=== PATIENT | female | born 1960 | race African-American/Black ===

== ENCOUNTER 2019-04-01 11:53 | Observation (INO) ==
[2019-04-01] MEDS ORDERED: methylPREDNISolone SOD SUC 125 MG/2 ML VIAL IV STA (12:11)
[2019-04-01] MEDS ORDERED: ALBUTEROL 2.5 MG/3 ML NEB RESP TX SCH (12:30)
[2019-04-01 12:58] LABS: ABG Base Excess 6.6 MMOL/L (-2.5-2.5); ABG Oxygen Saturation 83.8 % (95-100); ABG PCO2 61.2 MM HG (35-48); ABG PH 7.362 (7.35-7.45); ABG PO2 50.1 MM HG (80-95); ABG TCO2 29.7 MMOL/L (23-27)
[2019-04-01 13:07] LABS: Alanine Aminotransferase 13 U/L (13-56); Alkaline Phosphatase 103 U/L (45-117); Aspartate Amino Transferase 15 U/L (0-37); Bilirubin,Total < 0.39 MG/DL (0.2-1.0); Blood Urea Nitrogen 8 MG/DL (7-18); Calcium 9.1 MG/DL (8.5-10.1); Glucose 197 MG/DL (74-106); Osmolality,Calculated 277.7 MOS/KG (273-304); Total Protein 7.1 G/DL (6.4-8.3)
[2019-04-01 13:09] LABS: Basophils # 0.1 10*3/uL (0.0-0.2); Basophils % 0.8 % (0.0-0.8); Eosinophils # 0.5 10*3/uL (0.0-0.87); Eosinophils % 4.9 % (0.00-10.9); Hematocrit 51.5 VOL% (35.7-47.0); Hemoglobin 15.5 GM/DL (12.0-16.0); Immature Granulocytes % 0.3 %; Immature Granulocytes Absolute 0.03 #; Lymphocytes # 3.2 10*3/uL (1.4-4.0); Lymphocytes % 31.4 % (21.3-54.2); Mean Corpuscular HGB Conc 30.1 GM/DL (32-36); Mean Corpuscular Volume 85.3 FL (87-102); Mean Platelet Volume 11.8 FL (9.6-12.0); Monocytes % 6.5 % (1.7-12.7); Neutrophils % 56.1 % (38.7-73.9); Platelet Count 244 T/CUMM (130-400); Red Blood Count 6.04 MC/CUMM (3.8-5.5); Red Cell Distribution Width 17.2 % (9.3-17.3); White Blood Count 10.1 T/CUMM (4-12)
[2019-04-01] MEDS ORDERED: GLUCAGON 1 MG VIAL IM PRN (15:00)
[2019-04-01] MEDS ORDERED: ONDANSETRON 4 MG/2 ML VIAL IV PRN (15:00)
[2019-04-01] MEDS ORDERED: diphenhydrAMINE CAP 25 MG CAPSULE PO PRN (15:00)
[2019-04-01] MEDS ORDERED: DEXTROSE 50% 25 GM/50 ML VIAL IV PRN (15:00)
[2019-04-01] MEDS ORDERED: ACETAMINOPHEN 325 MG TABLET PO PRN (15:00)
[2019-04-01] MEDS ORDERED: PROMETHAZINE 25 MG/1 ML VIAL IM PRN (15:00)
[2019-04-01] MEDS ORDERED: ZALEPLON 5 MG CAPSULE PO PRN (15:00)
[2019-04-01] MEDS ORDERED: NICOTINE 21 MG/24 HR PATCH TRANSDERM PRN (15:00)
[2019-04-01] MEDS: methylPREDNISolone SOD SUC 40 MG/1 ML VIAL IV SCH ×2 (16:41→20:26)
[2019-04-01] MEDS: HEPARIN 5,000 UNIT/1 ML VIAL SUBCUT SCH (16:42)
[2019-04-01] MEDS: INSULIN REGULAR 100 UNIT/ML SUBCUT SCH ×2 (16:43→20:24)
[2019-04-01] MEDS: INSULIN LISPRO 100 UNIT/ML SUBCUT SCH (16:43)
[2019-04-01] MEDS: cefTRIAXone 1,000 MG in SYRINGE 1 EACH IV SCH (16:44)
[2019-04-01] MEDS: AZITHROMYCIN 250 MG TABLET PO SCH (17:02)
[2019-04-01] MEDS ORDERED: FUROSEMIDE 40 MG/4 ML VIAL IV ONE (19:00)
[2019-04-01] MEDS ORDERED: MAGNESIUM HYDROXIDE SUSP 30 ML UDCUP PO ONE (19:00)
[2019-04-01] MEDS: ALBUTEROL/IPRATROPIUM 3 ML NEB RESP TX SCH (19:26)
[2019-04-01] MEDS ORDERED: MAGNESIUM CITRATE 300 ML BOTTLE PO ONE (19:30)
[2019-04-01] MEDS: INSULIN GLARGINE 100 UNIT/ML SUBCUT SCH (20:23)
[2019-04-01] MEDS: BUDESONIDE/FORMOTEROL 160-4.5 INHALER 6 GM INH SCH (20:25)
[2019-04-01] MEDS: GABAPENTIN 300 MG CAPSULE PO SCH (20:26)
[2019-04-01] MEDS: glyBURIDE 5 MG TABLET PO SCH (20:26)
[2019-04-01] MEDS: LISINOPRIL/HCTZ 20-12.5 MG TABLET PO SCH (20:26)
[2019-04-01] MEDS: DOCUSATE SODIUM 100 MG CAPSULE PO SCH (20:26)
[2019-04-02] MEDS: HEPARIN 5,000 UNIT/1 ML VIAL SUBCUT SCH ×4 (00:02→23:32)
[2019-04-02] MEDS: ALBUTEROL/IPRATROPIUM 3 ML NEB RESP TX SCH ×4 (01:25→19:23)
[2019-04-02] MEDS: methylPREDNISolone SOD SUC 40 MG/1 ML VIAL IV SCH ×2 (05:03→13:22)
[2019-04-02 05:20] LABS: Basophils % 0.2 % (0.0-0.8); Hematocrit 48.9 VOL% (35.7-47.0); Hemoglobin 14.4 GM/DL (12.0-16.0); Immature Granulocytes % 0.7 %; Immature Granulocytes Absolute 0.09 #; Lymphocytes # 1.4 10*3/uL (1.4-4.0); Lymphocytes % 11.3 % (21.3-54.2); Mean Corpuscular HGB Conc 29.4 GM/DL (32-36); Mean Corpuscular Volume 85.8 FL (87-102); Mean Platelet Volume 11.9 FL (9.6-12.0); Monocytes % 1.8 % (1.7-12.7); Platelet Count 282 T/CUMM (130-400); Red Cell Distribution Width 16.4 % (9.3-17.3); White Blood Count 12.1 T/CUMM (4-12)
[2019-04-02 05:33] LABS: Alanine Aminotransferase 15 U/L (13-56); Albumin 2.8 G/DL (3.4-5.0); Alkaline Phosphatase 99 U/L (45-117); Aspartate Amino Transferase 11 U/L (0-37); Bilirubin,Total < 0.39 MG/DL (0.2-1.0); Blood Urea Nitrogen 17 MG/DL (7-18); Calcium 9.5 MG/DL (8.5-10.1); Glucose 327 MG/DL (74-106); HDL Cholesterol 31 MG/DL (40-60); Osmolality,Calculated 284.1 MOS/KG (273-304); Risk Ratio 5.77; Thyroid Stimulating Hormone 0.084 uIU/ml (0.358-3.74); Total Protein 7.6 G/DL (6.4-8.3); Triglycerides 93 MG/DL (2-150); VLDL CHOLESTEROL 18.6 MG/DL
[2019-04-02 07:26] LABS: Apearance,Urine CLEAR (Clear); Bilirubin,Urine Negative (Negative); Blood, Urine Negative (Negative); Glucose,Urine (UA) >=500 mg/dL (Negative); Hyaline Casts,Urine 1 /LPF (0-3); Ketones,Urine Negative (Negative); Mucus,Urine Occasional /LPF (Occasional); Nitrite,Urine Negative (Negative); Protein,Urine Negative; RBC,Urine <1 /HPF (0-4); Squamous Epithelial Cell,Urine Occasional /HPF (0-10); Urine Color Yellow (Yellow); Urine Urobilinogen < 2.0 EU/DL (0.2-1.0)
[2019-04-02] MEDS: DOCUSATE SODIUM 100 MG CAPSULE PO SCH ×2 (08:47→22:15)
[2019-04-02] MEDS: MONTELUKAST 10 MG TABLET PO SCH (08:47)
[2019-04-02] MEDS: LISINOPRIL/HCTZ 20-12.5 MG TABLET PO SCH ×2 (08:47→21:46)
[2019-04-02] MEDS: GABAPENTIN 300 MG CAPSULE PO SCH ×2 (08:47→21:09)
[2019-04-02] MEDS: PANTOPRAZOLE 40 MG TABLET PO SCH (08:47)
[2019-04-02] MEDS: buPROPion SR 150 MG TABLET PO SCH (08:47)
[2019-04-02] MEDS: AZITHROMYCIN 250 MG TABLET PO SCH (08:47)
[2019-04-02] MEDS: BUDESONIDE/FORMOTEROL 160-4.5 INHALER 6 GM INH SCH ×2 (08:48→22:15)
[2019-04-02] MEDS: glyBURIDE 5 MG TABLET PO SCH ×2 (08:48→21:10)
[2019-04-02] MEDS: INSULIN REGULAR 100 UNIT/ML SUBCUT SCH ×4 (08:49→21:12)
[2019-04-02] MEDS: INSULIN LISPRO 100 UNIT/ML SUBCUT SCH ×2 (08:49→16:56)
[2019-04-02] MEDS ORDERED: AMMONIUM LACTATE 12% LOTION 240 ML BOTTLE TOP SCH (09:00)
[2019-04-02] MEDS: cefTRIAXone 1,000 MG in SYRINGE 1 EACH IV SCH (16:55)
[2019-04-02] MEDS: INSULIN GLARGINE 100 UNIT/ML SUBCUT SCH (21:13)
[2019-04-02] MEDS: guaiFENesin/DM ER 600-30 MG TABLET PO PRN (21:20)
[2019-04-03] MEDS: ALBUTEROL/IPRATROPIUM 3 ML NEB RESP TX SCH ×2 (00:05→06:57)
[2019-04-03] MEDS ORDERED: methylPREDNISolone SOD SUC 40 MG/1 ML VIAL IV SCH (01:00)
[2019-04-03 04:21] LABS: ABG HCO3 32.3 MMOL/L (20-26); ABG Oxygen Saturation 89.3 % (95-100); ABG PCO2 58.4 MM HG (35-48); ABG PH 7.361 (7.35-7.45); ABG PO2 62.8 MM HG (80-95); ABG TCO2 34.1 MMOL/L (23-27); Allen Test Positive
[2019-04-03] MEDS: INSULIN REGULAR 100 UNIT/ML SUBCUT SCH (08:34)
[2019-04-03] MEDS: HEPARIN 5,000 UNIT/1 ML VIAL SUBCUT SCH (08:35)
[2019-04-03] MEDS: LISINOPRIL/HCTZ 20-12.5 MG TABLET PO SCH (08:36)
[2019-04-03] MEDS: INSULIN LISPRO 100 UNIT/ML SUBCUT SCH (08:36)
[2019-04-03] MEDS: DOCUSATE SODIUM 100 MG CAPSULE PO SCH (08:37)
[2019-04-03] MEDS: MONTELUKAST 10 MG TABLET PO SCH (08:37)
[2019-04-03] MEDS: PANTOPRAZOLE 40 MG TABLET PO SCH (08:37)
[2019-04-03] MEDS: buPROPion SR 150 MG TABLET PO SCH (08:37)
[2019-04-03] MEDS: guaiFENesin/DM ER 600-30 MG TABLET PO PRN (08:37)
[2019-04-03] MEDS: glyBURIDE 5 MG TABLET PO SCH (08:37)
[2019-04-03] MEDS: AZITHROMYCIN 250 MG TABLET PO SCH (08:37)
[2019-04-03] MEDS: GABAPENTIN 300 MG CAPSULE PO SCH (08:43)
[2019-04-03] MEDS: BUDESONIDE/FORMOTEROL 160-4.5 INHALER 6 GM INH SCH (08:43)
[2019-04-03 12:14] VITALS: BP 124/65
== END 2019-04-03 13:25 | disposition home or self-care (01) ==
LOC: N.EDINP 11:53 → N.ED 11:53 → N.4E 16:05
PROVIDERS: ADMIT Family Medicine; ATTEND Family Medicine

== ENCOUNTER 2019-09-22 11:13 | Observation (INO) ==
[2019-09-22] MEDS ORDERED: DEXTROSE 50% 25 GM/50 ML VIAL IV PRN (12:30)
[2019-09-22] MEDS ORDERED: ONDANSETRON 4 MG/2 ML VIAL IV PRN (12:30)
[2019-09-22] MEDS ORDERED: traMADol 50 MG TABLET PO PRN (12:30)
[2019-09-22] MEDS ORDERED: GLUCAGON 1 MG VIAL IM PRN (12:30)
[2019-09-22] MEDS ORDERED: ACETAMINOPHEN 325 MG TABLET PO PRN (12:30)
[2019-09-22] MEDS ORDERED: ALBUTEROL/IPRATROPIUM 3 ML NEB RESP TX PRN (12:32)
[2019-09-22] MEDS ORDERED: hydrALAZINE 20 MG/1 ML VIAL IV PRN (12:32)
[2019-09-22] MEDS ORDERED: BENZONATATE 100 MG CAPSULE PO PRN (12:32)
[2019-09-22] MEDS ORDERED: cefTRIAXone 1,000 MG in SYRINGE 1 EACH IV SCH (13:00)
[2019-09-22] MEDS ORDERED: AZITHROMYCIN INJ 500 MG in SODIUM CHLORIDE 0.9% 250 ML IV SCH (13:00)
[2019-09-22 14:07] LABS: Basophils # 0.1 10*3/uL (0.0-0.2); Basophils % 0.7 % (0.0-0.8); Eosinophils # 0.5 10*3/uL (0.0-0.87); Eosinophils % 4.6 % (0.00-10.9); Hematocrit 49.6 VOL% (35.7-47.0); Hemoglobin 14.8 GM/DL (12.0-16.0); Immature Granulocytes % 0.3 %; Immature Granulocytes Absolute 0.03 #; Lymphocytes # 3.3 10*3/uL (1.4-4.0); Lymphocytes % 33.8 % (21.3-54.2); Mean Corpuscular HGB Conc 29.8 GM/DL (32-36); Mean Corpuscular Volume 87.8 FL (87-102); Mean Platelet Volume 11.4 FL (9.6-12.0); Monocytes % 4.7 % (1.7-12.7); Neutrophils % 55.9 % (38.7-73.9); Platelet Count 338 T/CUMM (130-400); Red Blood Count 5.65 MC/CUMM (3.8-5.5); Red Cell Distribution Width 14.8 % (9.3-17.3); White Blood Count 9.7 T/CUMM (4-12)
[2019-09-22 14:29] LABS: Bilirubin,Total 0.6 MG/DL (0.2-1.0); Calcium 9.3 MG/DL (8.5-10.1); Osmolality,Calculated 274.1 MOS/KG (273-304); Total Protein 7.6 G/DL (6.4-8.3)
[2019-09-22] MEDS: FUROSEMIDE 40 MG/4 ML VIAL IV SCH (14:33)
[2019-09-22] MEDS: methylPREDNISolone SOD SUC 40 MG/1 ML VIAL IV SCH (14:33)
[2019-09-22 14:47] LABS: Apearance,Urine Slightly Hazy (Clear); Bacteria,Urine Occasional /HPF (Few); Bilirubin,Urine Negative (Negative); Blood, Urine Negative (Negative); Glucose,Urine (UA) Negative (Negative); Ketones,Urine Negative (Negative); Mucus,Urine Moderate /LPF (Occasional); Nitrite,Urine Negative (Negative); Protein,Urine Negative; Squamous Epithelial Cell,Urine Occasional /HPF (0-10); Urine Color Yellow (Yellow); Urine Specific Gravity 1.023 (1.001-1.035)
[2019-09-22] MEDS: ALBUTEROL/IPRATROPIUM 3 ML NEB RESP TX SCH ×3 (15:46→23:53)
[2019-09-22] MEDS: INSULIN LISPRO 100 UNIT/ML SUBCUT SCH ×2 (17:47→22:44)
[2019-09-22] MEDS: LISINOPRIL/HCTZ 20-12.5 MG TABLET PO SCH (21:25)
[2019-09-22] MEDS: GABAPENTIN 300 MG CAPSULE PO SCH (21:26)
[2019-09-22] MEDS: DOCUSATE SODIUM 100 MG CAPSULE PO SCH (21:26)
[2019-09-22] MEDS: BUDESONIDE/FORMOTEROL 160-4.5 INHALER 6 GM INH SCH (21:28)
[2019-09-23] MEDS: methylPREDNISolone SOD SUC 40 MG/1 ML VIAL IV SCH (01:48)
[2019-09-23] MEDS: ALBUTEROL/IPRATROPIUM 3 ML NEB RESP TX SCH ×3 (03:25→11:16)
[2019-09-23 05:39] LABS: Calcium 9.3 MG/DL (8.5-10.1); Osmolality,Calculated 280.4 MOS/KG (273-304)
[2019-09-23] MEDS: GLYCOPYRROLATE FORMOTEROL INH SCH ×2 (06:43→09:09)
[2019-09-23] MEDS ORDERED: INSULIN LISPRO 100 UNIT/ML SUBCUT SCH (08:00)
[2019-09-23] MEDS ORDERED: PANTOPRAZOLE 40 MG TABLET PO SCH (09:00)
[2019-09-23] MEDS ORDERED: MONTELUKAST 10 MG TABLET PO SCH (09:00)
[2019-09-23] MEDS: INSULIN LISPRO 100 UNIT/ML SUBCUT SCH ×2 (09:08→12:31)
[2019-09-23] MEDS: GABAPENTIN 300 MG CAPSULE PO SCH (09:09)
[2019-09-23] MEDS: LISINOPRIL/HCTZ 20-12.5 MG TABLET PO SCH (09:09)
[2019-09-23] MEDS: FUROSEMIDE 40 MG/4 ML VIAL IV SCH (09:10)
[2019-09-23] MEDS: BUDESONIDE/FORMOTEROL 160-4.5 INHALER 6 GM INH SCH (10:22)
[2019-09-23] MEDS: DOCUSATE SODIUM 100 MG CAPSULE PO SCH (10:22)
[2019-09-23 12:32] VITALS: BP 145/62
== END 2019-09-23 13:15 | disposition home or self-care (01) ==
LOC: N.2W
PROVIDERS: ADMIT Family Medicine; ATTEND Family Medicine

== ENCOUNTER 2019-11-24 11:45 | Inpatient (IN) ==
[2019-11-24] MEDS ORDERED: methylPREDNISolone SOD SUC 125 MG/2 ML VIAL IV STA (12:10)
[2019-11-24] MEDS ORDERED: ALBUTEROL NEB SOLN 5 MG/ML 20 ML/BOTTLE CONT NEB SCH (12:30)
[2019-11-24 12:59] LABS: ABG Base Excess 4.6 MMOL/L (-2.5-2.5); ABG HCO3 28.4 MMOL/L (20-26); ABG Oxygen Saturation 92.7 % (95-100); ABG PCO2 52.3 MM HG (35-48); ABG PH 7.384 (7.35-7.45); ABG PO2 65.2 MM HG (80-95); ABG TCO2 26.8 MMOL/L (23-27)
[2019-11-24 13:01] LABS: Alanine Aminotransferase 15 U/L (13-56); Albumin 3.1 G/DL (3.4-5.0); Alkaline Phosphatase 110 U/L (45-117); Aspartate Amino Transferase 19 U/L (0-37); Bilirubin,Total < 0.39 MG/DL (0.2-1.0); Blood Urea Nitrogen 10 MG/DL (7-18); Calcium 9.7 MG/DL (8.5-10.1); Estimated Glom Filtration Rate 153 ML/MIN; Glucose 218 MG/DL (74-106); Osmolality,Calculated 273.2 MOS/KG (273-304); Total Protein 7.6 G/DL (6.4-8.3)
[2019-11-24 13:16] LABS: Basophils # 0.1 10*3/uL (0.0-0.2); Basophils % 0.5 % (0.0-0.8); Eosinophils # 0.5 10*3/uL (0.0-0.87); Eosinophils % 4.4 % (0.00-10.9); Hematocrit 52.8 VOL% (35.7-47.0); Hemoglobin 15.4 GM/DL (12.0-16.0); Immature Granulocytes % 0.4 %; Immature Granulocytes Absolute 0.04 #; Lymphocytes # 3.9 10*3/uL (1.4-4.0); Lymphocytes % 35.5 % (21.3-54.2); Mean Corpuscular HGB Conc 29.2 GM/DL (32-36); Mean Corpuscular Volume 87.4 FL (87-102); Monocytes % 3.6 % (1.7-12.7); Neutrophils % 55.6 % (38.7-73.9); Platelet Count 226 T/CUMM (130-400); Red Blood Count 6.04 MC/CUMM (3.8-5.5); Red Cell Distribution Width 15.4 % (9.3-17.3); White Blood Count 11.1 T/CUMM (4-12)
[2019-11-24] MEDS ORDERED: ONDANSETRON 4 MG/2 ML VIAL IV PRN (14:54)
[2019-11-24] MEDS ORDERED: SODIUM CHLORIDE 0.9% 1,000 ML IV SCH (14:54)
[2019-11-24] MEDS ORDERED: ACETAMINOPHEN 325 MG TABLET PO PRN (14:54)
[2019-11-24] MEDS ORDERED: GLUCAGON 1 MG VIAL IM PRN (15:16)
[2019-11-24] MEDS ORDERED: DEXTROSE 10% 250 ML BAG IV PRN ×2 (15:16→16:25)
[2019-11-24] MEDS ORDERED: hydrALAZINE 20 MG/1 ML VIAL IV PRN (16:23)
[2019-11-24] MEDS ORDERED: traMADol 50 MG TABLET PO PRN (16:23)
[2019-11-24] MEDS ORDERED: ALBUTEROL/IPRATROPIUM 3 ML NEB RESP TX PRN (16:23)
[2019-11-24] MEDS ORDERED: GABAPENTIN 300 MG CAPSULE PO PRN (16:25)
[2019-11-24] MEDS: INSULIN LISPRO 100 UNIT/ML SUBCUT SCH ×3 (16:50→21:56)
[2019-11-24] MEDS: cefTRIAXone 1,000 MG in SYRINGE 1 EACH IV SCH (16:58)
[2019-11-24] MEDS: ALBUTEROL 2.5 MG/3 ML NEB RESP TX SCH ×3 (17:04→23:56)
[2019-11-24] MEDS: DOCUSATE SODIUM 100 MG CAPSULE PO SCH (21:55)
[2019-11-24] MEDS: BUDESONIDE/FORMOTEROL 160-4.5 INHALER 6 GM INH SCH (21:55)
[2019-11-24] MEDS: glyBURIDE 5 MG TABLET PO SCH (21:55)
[2019-11-24] MEDS: LISINOPRIL/HCTZ 20-12.5 MG TABLET PO SCH (21:55)
[2019-11-24] MEDS: INSULIN GLARGINE 100 UNIT/ML SUBCUT SCH (21:57)
[2019-11-25] MEDS: ALBUTEROL 2.5 MG/3 ML NEB RESP TX SCH ×6 (03:44→23:49)
[2019-11-25 06:16] LABS: Calcium 9.2 MG/DL (8.5-10.1); Osmolality,Calculated 279.2 MOS/KG (273-304)
[2019-11-25] MEDS: DOCUSATE SODIUM 100 MG CAPSULE PO SCH ×2 (09:03→21:39)
[2019-11-25] MEDS: glyBURIDE 5 MG TABLET PO SCH ×2 (09:03→21:39)
[2019-11-25] MEDS: MONTELUKAST 10 MG TABLET PO SCH (09:03)
[2019-11-25] MEDS: PANTOPRAZOLE 40 MG TABLET PO SCH (09:03)
[2019-11-25] MEDS: LISINOPRIL/HCTZ 20-12.5 MG TABLET PO SCH ×2 (09:03→21:51)
[2019-11-25] MEDS: INSULIN LISPRO 100 UNIT/ML SUBCUT SCH ×7 (09:04→21:41)
[2019-11-25] MEDS: cefTRIAXone 1,000 MG in SYRINGE 1 EACH IV SCH (09:10)
[2019-11-25] MEDS: methylPREDNISolone SOD SUC 40 MG/1 ML VIAL IV SCH ×2 (09:17→21:35)
[2019-11-25] MEDS: BUDESONIDE/FORMOTEROL 160-4.5 INHALER 6 GM INH SCH ×2 (10:16→21:51)
[2019-11-25] MEDS: INSULIN GLARGINE 100 UNIT/ML SUBCUT SCH (21:41)
[2019-11-26] MEDS: ALBUTEROL 2.5 MG/3 ML NEB RESP TX SCH ×5 (04:00→19:24)
[2019-11-26] MEDS: BUDESONIDE/FORMOTEROL 160-4.5 INHALER 6 GM INH SCH ×2 (08:55→21:13)
[2019-11-26] MEDS: INSULIN LISPRO 100 UNIT/ML SUBCUT SCH ×7 (08:56→21:06)
[2019-11-26] MEDS: methylPREDNISolone SOD SUC 40 MG/1 ML VIAL IV SCH ×2 (08:57→21:01)
[2019-11-26] MEDS: LISINOPRIL/HCTZ 20-12.5 MG TABLET PO SCH ×2 (08:58→21:01)
[2019-11-26] MEDS: PANTOPRAZOLE 40 MG TABLET PO SCH (08:58)
[2019-11-26] MEDS: cefTRIAXone 1,000 MG in SYRINGE 1 EACH IV SCH (08:58)
[2019-11-26] MEDS: DOCUSATE SODIUM 100 MG CAPSULE PO SCH ×2 (08:58→21:01)
[2019-11-26] MEDS: glyBURIDE 5 MG TABLET PO SCH ×2 (08:58→21:01)
[2019-11-26] MEDS: MONTELUKAST 10 MG TABLET PO SCH (08:58)
[2019-11-26] MEDS ORDERED: POLYETHYLENE GLYCOL POWDER 17 GM PACK PO PRN (11:46)
[2019-11-26] MEDS: INSULIN GLARGINE 100 UNIT/ML SUBCUT SCH (21:07)
[2019-11-27] MEDS: ALBUTEROL 2.5 MG/3 ML NEB RESP TX SCH ×3 (00:30→06:57)
[2019-11-27 07:27] VITALS: BP 142/76
[2019-11-27] MEDS: cefTRIAXone 1,000 MG in SYRINGE 1 EACH IV SCH (09:04)
[2019-11-27] MEDS: glyBURIDE 5 MG TABLET PO SCH (09:04)
[2019-11-27] MEDS: PANTOPRAZOLE 40 MG TABLET PO SCH (09:04)
[2019-11-27] MEDS: LISINOPRIL/HCTZ 20-12.5 MG TABLET PO SCH (09:04)
[2019-11-27] MEDS: DOCUSATE SODIUM 100 MG CAPSULE PO SCH (09:04)
[2019-11-27] MEDS: MONTELUKAST 10 MG TABLET PO SCH (09:04)
[2019-11-27] MEDS: methylPREDNISolone SOD SUC 40 MG/1 ML VIAL IV SCH (09:05)
[2019-11-27] MEDS: INSULIN LISPRO 100 UNIT/ML SUBCUT SCH ×2 (09:05)
[2019-11-27] MEDS: BUDESONIDE/FORMOTEROL 160-4.5 INHALER 6 GM INH SCH (09:05)
== END 2019-11-27 09:37 | disposition home or self-care (01) | DRG 140 ==
LOC: N.ED 11:45 → N.EDINP 13:54 → N.2E 14:45
PROVIDERS: ADMIT Family Medicine; ATTEND Family Medicine

== ENCOUNTER 2020-03-30 10:09 | Inpatient (IN) ==
[2020-03-30] MEDS ORDERED: LEVOFLOXACIN 500 MG TABLET PO STA (10:52)
[2020-03-30] MEDS ORDERED: methylPREDNISolone SOD SUC 125 MG/2 ML VIAL IV STA (10:52)
[2020-03-30] MEDS ORDERED: ALBUTEROL NEB SOLN 5 MG/ML 20 ML/BOTTLE CONT NEB SCH (11:00)
[2020-03-30 11:13] LABS: PT Patient Result 11.1 SECS (9.8-11.9); Partial Thromboplastin Time 28.8 SECS (23.9-33.8)
[2020-03-30 11:27] LABS: Alanine Aminotransferase 16 U/L (13-56); Albumin 2.9 G/DL (3.4-5.0); Alkaline Phosphatase 104 U/L (45-117); Aspartate Amino Transferase 17 U/L (0-37); Basophils # 0.1 10*3/uL (0.0-0.2); Basophils % 0.7 % (0.0-0.8); Bilirubin,Total < 0.39 MG/DL (0.2-1.0); Blood Urea Nitrogen 7 MG/DL (7-18); Calcium 9.4 MG/DL (8.5-10.1); Eosinophils # 0.5 10*3/uL (0.0-0.87); Eosinophils % 5.1 % (0.00-10.9); Estimated Glom Filtration Rate 153 ML/MIN; Glucose 179 MG/DL (74-106); Hematocrit 47.6 VOL% (35.7-47.0); Immature Granulocytes % 0.3 %; Immature Granulocytes Absolute 0.03 #; Lymphocytes # 3.2 10*3/uL (1.4-4.0); Lymphocytes % 31.4 % (21.3-54.2); Mean Corpuscular HGB Conc 30.3 GM/DL (32-36); Mean Corpuscular Volume 86.4 FL (87-102); Mean Platelet Volume 11.5 FL (9.6-12.0); Monocytes % 5.5 % (1.7-12.7); Osmolality,Calculated 276.7 MOS/KG (273-304); Platelet Count 297 T/CUMM (130-400); Red Blood Count 5.51 MC/CUMM (3.8-5.5); Red Cell Distribution Width 15.1 % (9.3-17.3); Total Protein 7.4 G/DL (6.4-8.3); White Blood Count 10.2 T/CUMM (4-12)
[2020-03-30 11:30] LABS: Hemoglobin 14.4 GM/DL (12.0-16.0)
[2020-03-30 12:47] LABS: Apearance,Urine CLEAR (Clear); Bilirubin,Urine Negative (Negative); Blood, Urine Negative (Negative); Glucose,Urine (UA) Negative (Negative); Ketones,Urine Negative (Negative); Mucus,Urine Occasional /LPF (Occasional); Nitrite,Urine Negative (Negative); Protein,Urine Negative; RBC,Urine <1 /HPF (0-4); Squamous Epithelial Cell,Urine Occasional /HPF (0-10); Urine Color Yellow (Yellow); Urine Urobilinogen < 2.0 EU/DL (0.2-1.0)
[2020-03-30 13:17] LABS: Barbiturates Screen,Urine Negative (Negative); Benzodiazepines Screen,Urine Negative (Negative); Cannabinoid Screen,Urine Negative (Negative); Opiate Screen,Urine Negative (Negative); Phencyclidine Screen,Urine Negative (Negative)
[2020-03-30] MEDS ORDERED: ONDANSETRON 4 MG/2 ML VIAL IV PRN (14:56)
[2020-03-30] MEDS ORDERED: ALBUTEROL 2.5 MG/3 ML NEB RESP TX SCH (14:56)
[2020-03-30] MEDS ORDERED: SODIUM CHLORIDE 0.9% 1,000 ML IV SCH (14:56)
[2020-03-30] MEDS ORDERED: ACETAMINOPHEN 325 MG TABLET PO PRN (14:56)
[2020-03-30] MEDS ORDERED: FUROSEMIDE 40 MG/4 ML VIAL IV ONE (19:10)
[2020-03-30] MEDS ORDERED: hydrALAZINE 20 MG/1 ML VIAL IV PRN (19:14)
[2020-03-30] MEDS ORDERED: MAGNESIUM SULF RIDER 4 GM in PREMIX 1 EACH IV PRN (20:00)
[2020-03-30] MEDS ORDERED: traMADol 50 MG TABLET PO PRN (20:00)
[2020-03-30] MEDS ORDERED: POTASSIUM CHLORIDE 20 MEQ TABLET PO PRN (20:00)
[2020-03-30] MEDS ORDERED: POTASSIUM CHLORIDE RIDER 10 MEQ in PREMIX 1 EACH IV PRN (20:00)
[2020-03-30] MEDS ORDERED: DEXTROSE 50% 25 GM/50 ML VIAL IV PRN (20:00)
[2020-03-30] MEDS ORDERED: MAGNESIUM SULF RIDER 2 GM in PREMIX 1 EACH IV PRN (20:00)
[2020-03-30] MEDS ORDERED: GLUCAGON 1 MG VIAL IM PRN (20:00)
[2020-03-30] MEDS: ALBUTEROL 2.5 MG/3 ML NEB RESP TX SCH (20:50)
[2020-03-30] MEDS: cefTRIAXone 1,000 MG in SYRINGE 1 EACH IV SCH (21:32)
[2020-03-30] MEDS: methylPREDNISolone SOD SUC 40 MG/1 ML VIAL IV SCH (21:32)
[2020-03-30] MEDS: INSULIN LISPRO 100 UNIT/ML SUBCUT SCH (21:33)
[2020-03-30] MEDS: LISINOPRIL/HCTZ 20-12.5 MG TABLET PO SCH (21:33)
[2020-03-30] MEDS: DOCUSATE SODIUM 100 MG CAPSULE PO SCH (21:33)
[2020-03-30] MEDS: ENOXAPARIN 40 MG/0.4 ML SYRINGE SUBCUT SCH (21:33)
[2020-03-30] MEDS: INSULIN GLARGINE 100 UNIT/ML SUBCUT SCH (21:34)
[2020-03-30] MEDS: BUDESONIDE/FORMOTEROL 160-4.5 INHALER 6 GM INH SCH (21:34)
[2020-03-30] MEDS: AZITHROMYCIN INJ 500 MG in SODIUM CHLORIDE 0.9% 250 ML IV SCH (21:41)
[2020-03-31] MEDS ORDERED: ALBUTEROL/IPRATROPIUM 3 ML NEB RESP TX ONE (00:40)
[2020-03-31] MEDS: ALBUTEROL 2.5 MG/3 ML NEB RESP TX SCH ×3 (00:46→09:16)
[2020-03-31] MEDS: ALBUTEROL/IPRATROPIUM 3 ML NEB RESP TX SCH ×6 (04:17→23:58)
[2020-03-31 06:36] LABS: Calcium 9.4 MG/DL (8.5-10.1); Osmolality,Calculated 278.2 MOS/KG (273-304)
[2020-03-31 07:04] LABS: Basophils % 0.1 % (0.0-0.8); Hematocrit 46.3 VOL% (35.7-47.0); Immature Granulocytes % 0.5 %; Immature Granulocytes Absolute 0.06 #; Lymphocytes # 1.8 10*3/uL (1.4-4.0); Lymphocytes % 14.9 % (21.3-54.2); Mean Corpuscular Volume 85.6 FL (87-102); Mean Platelet Volume 11.4 FL (9.6-12.0); Monocytes % 2.6 % (1.7-12.7); Neutrophils % 81.9 % (38.7-73.9); Platelet Count 344 T/CUMM (130-400); Red Blood Count 5.41 MC/CUMM (3.8-5.5); Red Cell Distribution Width 15.3 % (9.3-17.3); White Blood Count 12.1 T/CUMM (4-12)
[2020-03-31 07:07] LABS: Hemoglobin 13.9 GM/DL (12.0-16.0)
[2020-03-31] MEDS: PANTOPRAZOLE 40 MG TABLET PO SCH (08:20)
[2020-03-31] MEDS: DOCUSATE SODIUM 100 MG CAPSULE PO SCH ×2 (08:20→20:42)
[2020-03-31] MEDS: LISINOPRIL/HCTZ 20-12.5 MG TABLET PO SCH ×2 (08:20→20:42)
[2020-03-31] MEDS: methylPREDNISolone SOD SUC 40 MG/1 ML VIAL IV SCH ×2 (08:21→20:44)
[2020-03-31] MEDS: BUDESONIDE/FORMOTEROL 160-4.5 INHALER 6 GM INH SCH ×2 (08:21→22:45)
[2020-03-31] MEDS: INSULIN LISPRO 100 UNIT/ML SUBCUT SCH ×4 (08:39→22:44)
[2020-03-31] MEDS: cefTRIAXone 1,000 MG in SYRINGE 1 EACH IV SCH (20:22)
[2020-03-31] MEDS: GABAPENTIN 300 MG CAPSULE PO PRN (20:42)
[2020-03-31] MEDS: ENOXAPARIN 40 MG/0.4 ML SYRINGE SUBCUT SCH (21:05)
[2020-03-31] MEDS: AZITHROMYCIN INJ 500 MG in SODIUM CHLORIDE 0.9% 250 ML IV SCH (21:07)
[2020-03-31] MEDS: INSULIN GLARGINE 100 UNIT/ML SUBCUT SCH (22:44)
[2020-04-01] MEDS: ALBUTEROL/IPRATROPIUM 3 ML NEB RESP TX SCH ×5 (03:31→20:30)
[2020-04-01 05:15] LABS: Calcium 9.7 MG/DL (8.5-10.1); Osmolality,Calculated 275.2 MOS/KG (273-304)
[2020-04-01] MEDS: LISINOPRIL/HCTZ 20-12.5 MG TABLET PO SCH ×2 (09:01→20:55)
[2020-04-01] MEDS: PANTOPRAZOLE 40 MG TABLET PO SCH (09:01)
[2020-04-01] MEDS: DOCUSATE SODIUM 100 MG CAPSULE PO SCH ×2 (09:02→20:54)
[2020-04-01] MEDS: INSULIN LISPRO 100 UNIT/ML SUBCUT SCH ×4 (09:02→21:19)
[2020-04-01] MEDS: BUDESONIDE/FORMOTEROL 160-4.5 INHALER 6 GM INH SCH ×2 (09:03→21:24)
[2020-04-01] MEDS: methylPREDNISolone SOD SUC 40 MG/1 ML VIAL IV SCH ×2 (09:03→20:55)
[2020-04-01] MEDS: MONTELUKAST 10 MG TABLET PO SCH (11:06)
[2020-04-01] MEDS: cefTRIAXone 1,000 MG in SYRINGE 1 EACH IV SCH (20:52)
[2020-04-01] MEDS: INSULIN GLARGINE 100 UNIT/ML SUBCUT SCH (20:55)
[2020-04-01] MEDS: AZITHROMYCIN INJ 500 MG in SODIUM CHLORIDE 0.9% 250 ML IV SCH (20:56)
[2020-04-01] MEDS: ENOXAPARIN 40 MG/0.4 ML SYRINGE SUBCUT SCH (20:56)
[2020-04-02] MEDS: ALBUTEROL/IPRATROPIUM 3 ML NEB RESP TX SCH ×3 (00:22→07:45)
[2020-04-02] MEDS: GABAPENTIN 300 MG CAPSULE PO PRN (08:16)
[2020-04-02] MEDS: methylPREDNISolone SOD SUC 40 MG/1 ML VIAL IV SCH (08:16)
[2020-04-02] MEDS: MONTELUKAST 10 MG TABLET PO SCH (08:16)
[2020-04-02] MEDS: LISINOPRIL/HCTZ 20-12.5 MG TABLET PO SCH (08:17)
[2020-04-02] MEDS: DOCUSATE SODIUM 100 MG CAPSULE PO SCH (08:17)
[2020-04-02] MEDS: INSULIN LISPRO 100 UNIT/ML SUBCUT SCH (08:17)
[2020-04-02] MEDS: PANTOPRAZOLE 40 MG TABLET PO SCH (08:17)
[2020-04-02] MEDS: BUDESONIDE/FORMOTEROL 160-4.5 INHALER 6 GM INH SCH (08:18)
[2020-04-02] MEDS ORDERED: MONTELUKAST 10 MG TABLET PO SCH (10:10)
[2020-04-02 13:02] VITALS: BP 114/62
== END 2020-04-02 12:36 | disposition home or self-care (01) | DRG 140 ==
LOC: N.ED 10:09 → N.EDINP 11:48 → N.4E 14:45
PROVIDERS: ADMIT Family Medicine; ATTEND Family Medicine

== ENCOUNTER 2020-10-04 10:28 | Inpatient (IN) ==
[2020-10-04 11:56] LABS: Basophils # 0.1 10*3/uL (0.0-0.2); Basophils % 0.5 % (0.0-0.8); Eosinophils % 0.1 % (0.00-10.9); Hematocrit 50.4 VOL% (35.7-47.0); Immature Granulocytes % 0.7 %; Immature Granulocytes Absolute 0.16 #; Lymphocytes # 3.2 10*3/uL (1.4-4.0); Lymphocytes % 14.3 % (21.3-54.2); Mean Corpuscular HGB Conc 31.2 GM/DL (32-36); Mean Corpuscular Volume 82.6 FL (87-102); Monocytes % 5.5 % (1.7-12.7); Neutrophils % 78.9 % (38.7-73.9); Platelet Count 283 T/CUMM (130-400); Red Cell Distribution Width 17.4 % (9.3-17.3); White Blood Count 22.5 T/CUMM (4-12)
[2020-10-04 11:57] LABS: Hemoglobin 15.7 GM/DL (12.0-16.0)
[2020-10-04 11:58] LABS: Lymphocytes 11 % (20-55); Platelet Estimate Adequate; Segmented Neutrophils 87 % (50-85); Total Cells Counted 100
[2020-10-04 12:10] LABS: Albumin 3.1 G/DL (3.4-5.0); Bilirubin,Total 0.8 MG/DL (0.2-1.0); Calcium 9.6 MG/DL (8.5-10.1); Osmolality,Calculated 280.8 MOS/KG (273-304); Potassium 4.4 MMOL/L (3.5-5.1); Total Protein 7.5 G/DL (6.4-8.3)
[2020-10-04] MEDS ORDERED: ALBUTEROL 2.5 MG/3 ML NEB RESP TX STA (13:15)
[2020-10-04] MEDS ORDERED: methylPREDNISolone SOD SUC 40 MG/1 ML VIAL IV STA (13:16)
[2020-10-04] MEDS ORDERED: cefTRIAXone 1,000 MG in SODIUM CHLORIDE 0.9% 100 ML IV STA (14:34)
[2020-10-04] MEDS ORDERED: ACETAMINOPHEN/CODEINE 300-30 MG TABLET PO PRN (16:22)
[2020-10-04] MEDS ORDERED: ACETAMINOPHEN 325 MG TABLET PO PRN (16:22)
[2020-10-04] MEDS ORDERED: GLUCAGON 1 MG VIAL IM PRN (16:22)
[2020-10-04] MEDS ORDERED: DEXTROSE 50% 25 GM/50 ML VIAL IV PRN (16:22)
[2020-10-04] MEDS ORDERED: ONDANSETRON 4 MG/2 ML VIAL IV PRN (16:22)
[2020-10-04] MEDS ORDERED: ALBUTEROL 2.5 MG/3 ML NEB RESP TX PRN (16:25)
[2020-10-04] MEDS ORDERED: GABAPENTIN 300 MG CAPSULE PO PRN (16:26)
[2020-10-04] MEDS: LEVOFLOXACIN INJ 750 MG in PREMIX 1 EACH IV SCH (17:15)
[2020-10-04] MEDS: ALBUTEROL 2.5 MG/3 ML NEB RESP TX SCH (19:53)
[2020-10-04] MEDS: SODIUM CHLORIDE 0.9% 1,000 ML IV SCH ×2 (21:06→21:13)
[2020-10-04] MEDS: INSULIN LISPRO 100 UNIT/ML SUBCUT SCH ×2 (21:08→21:16)
[2020-10-04] MEDS: DOCUSATE SODIUM 100 MG CAPSULE PO SCH (22:06)
[2020-10-04] MEDS: ENOXAPARIN 40 MG/0.4 ML SYRINGE SUBCUT SCH (22:07)
[2020-10-05] MEDS: BUDESONIDE/FORMOTEROL 160-4.5 INHALER 6 GM INH SCH ×3 (01:14→20:36)
[2020-10-05] MEDS: INSULIN GLARGINE 100 UNIT/ML SUBCUT SCH ×2 (01:14→20:34)
[2020-10-05] MEDS: LISINOPRIL/HCTZ 20-12.5 MG TABLET PO SCH ×3 (01:15→20:34)
[2020-10-05] MEDS: ALBUTEROL 2.5 MG/3 ML NEB RESP TX SCH ×4 (02:12→20:25)
[2020-10-05 06:20] LABS: Basophils % 0.2 % (0.0-0.8); Hematocrit 45.1 VOL% (35.7-47.0); Immature Granulocytes % 0.8 %; Immature Granulocytes Absolute 0.14 #; Lymphocytes # 1.1 10*3/uL (1.4-4.0); Lymphocytes % 5.7 % (21.3-54.2); Mean Corpuscular HGB Conc 30.8 GM/DL (32-36); Mean Corpuscular Volume 82.1 FL (87-102); Mean Platelet Volume 11.9 FL (9.6-12.0); Monocytes % 3.8 % (1.7-12.7); Neutrophils % 89.5 % (38.7-73.9); Platelet Count 283 T/CUMM (130-400); Red Blood Count 5.49 MC/CUMM (3.8-5.5); Red Cell Distribution Width 16.4 % (9.3-17.3); White Blood Count 18.5 T/CUMM (4-12)
[2020-10-05 06:21] LABS: Hemoglobin 13.9 GM/DL (12.0-16.0)
[2020-10-05] MEDS: PANTOPRAZOLE 40 MG TABLET PO SCH (08:50)
[2020-10-05] MEDS: DOCUSATE SODIUM 100 MG CAPSULE PO SCH ×2 (08:50→20:34)
[2020-10-05] MEDS: INSULIN LISPRO 100 UNIT/ML SUBCUT SCH ×7 (08:50→20:35)
[2020-10-05] MEDS: MONTELUKAST 10 MG TABLET PO SCH (08:50)
[2020-10-05] MEDS: glyBURIDE 5 MG TABLET PO SCH ×2 (08:53→16:16)
[2020-10-05] MEDS: methylPREDNISolone SOD SUC 40 MG/1 ML VIAL IV SCH ×2 (11:38→22:19)
[2020-10-05] MEDS ORDERED: FUROSEMIDE 20 MG/2 ML VIAL IV ONE (15:01)
[2020-10-05] MEDS: LEVOFLOXACIN INJ 750 MG in PREMIX 1 EACH IV SCH (16:17)
[2020-10-05] MEDS: ENOXAPARIN 40 MG/0.4 ML SYRINGE SUBCUT SCH (20:34)
[2020-10-06] MEDS: ALBUTEROL 2.5 MG/3 ML NEB RESP TX SCH ×4 (01:32→19:34)
[2020-10-06 05:40] LABS: Basophils % 0.2 % (0.0-0.8); Hemoglobin 13.3 GM/DL (12.0-16.0); Immature Granulocytes % 0.7 %; Immature Granulocytes Absolute 0.12 #; Lymphocytes % 6.1 % (21.3-54.2); Mean Corpuscular HGB Conc 30.9 GM/DL (32-36); Mean Platelet Volume 12.2 FL (9.6-12.0); Monocytes % 2.5 % (1.7-12.7); Neutrophils % 90.5 % (38.7-73.9); Platelet Count 321 T/CUMM (130-400); Red Blood Count 5.18 MC/CUMM (3.8-5.5); Red Cell Distribution Width 16.3 % (9.3-17.3); White Blood Count 16.7 T/CUMM (4-12)
[2020-10-06 06:07] LABS: Calcium 9.4 MG/DL (8.5-10.1); Osmolality,Calculated 278.4 MOS/KG (273-304); Potassium 4.2 MMOL/L (3.5-5.1)
[2020-10-06] MEDS: SODIUM CHLORIDE 0.9% 1,000 ML IV SCH (07:45)
[2020-10-06] MEDS: INSULIN LISPRO 100 UNIT/ML SUBCUT SCH ×8 (09:06→20:43)
[2020-10-06] MEDS: MONTELUKAST 10 MG TABLET PO SCH (09:17)
[2020-10-06] MEDS: LISINOPRIL/HCTZ 20-12.5 MG TABLET PO SCH ×2 (09:17→20:39)
[2020-10-06] MEDS: PANTOPRAZOLE 40 MG TABLET PO SCH (09:18)
[2020-10-06] MEDS: BUDESONIDE/FORMOTEROL 160-4.5 INHALER 6 GM INH SCH ×2 (09:18→20:42)
[2020-10-06] MEDS: glyBURIDE 5 MG TABLET PO SCH ×2 (09:18→16:25)
[2020-10-06] MEDS: DOCUSATE SODIUM 100 MG CAPSULE PO SCH ×2 (09:18→20:39)
[2020-10-06] MEDS: methylPREDNISolone SOD SUC 40 MG/1 ML VIAL IV SCH ×2 (09:43→22:21)
[2020-10-06] MEDS: LEVOFLOXACIN INJ 750 MG in PREMIX 1 EACH IV SCH (16:25)
[2020-10-06] MEDS: ENOXAPARIN 40 MG/0.4 ML SYRINGE SUBCUT SCH (20:39)
[2020-10-06] MEDS: INSULIN GLARGINE 100 UNIT/ML SUBCUT SCH (20:39)
[2020-10-07] MEDS: ALBUTEROL 2.5 MG/3 ML NEB RESP TX SCH ×2 (01:15→07:20)
[2020-10-07 04:02] LABS: Basophils % 0.2 % (0.0-0.8); Hematocrit 45.6 VOL% (35.7-47.0); Hemoglobin 13.9 GM/DL (12.0-16.0); Immature Granulocytes % 0.7 %; Immature Granulocytes Absolute 0.09 #; Lymphocytes # 1.4 10*3/uL (1.4-4.0); Lymphocytes % 11.3 % (21.3-54.2); Mean Corpuscular HGB Conc 30.5 GM/DL (32-36); Mean Corpuscular Volume 82.9 FL (87-102); Mean Platelet Volume 12.1 FL (9.6-12.0); Neutrophils % 83.8 % (38.7-73.9); Platelet Count 328 T/CUMM (130-400); Red Cell Distribution Width 16.2 % (9.3-17.3); White Blood Count 12.6 T/CUMM (4-12)
[2020-10-07 04:13] LABS: Calcium 9.9 MG/DL (8.5-10.1); Potassium 4.6 MMOL/L (3.5-5.1)
[2020-10-07] MEDS: INSULIN LISPRO 100 UNIT/ML SUBCUT SCH ×4 (09:04→11:21)
[2020-10-07] MEDS: DOCUSATE SODIUM 100 MG CAPSULE PO SCH (09:04)
[2020-10-07] MEDS: LISINOPRIL/HCTZ 20-12.5 MG TABLET PO SCH (09:04)
[2020-10-07] MEDS: PANTOPRAZOLE 40 MG TABLET PO SCH (09:04)
[2020-10-07] MEDS: BUDESONIDE/FORMOTEROL 160-4.5 INHALER 6 GM INH SCH (09:05)
[2020-10-07] MEDS: methylPREDNISolone SOD SUC 40 MG/1 ML VIAL IV SCH ×2 (09:05→10:14)
[2020-10-07] MEDS: MONTELUKAST 10 MG TABLET PO SCH (09:05)
[2020-10-07] MEDS: glyBURIDE 5 MG TABLET PO SCH (09:12)
[2020-10-07 12:35] VITALS: BP 144/67
== END 2020-10-07 13:13 | disposition home or self-care (01) | DRG 139 ==
LOC: N.ED 10:28 → N.EDINP 16:22 → N.3E 23:37
PROVIDERS: ADMIT Family Medicine; ATTEND Family Medicine